=== PATIENT | female | born 1995 | race Caucasian/White ===

== ENCOUNTER 2017-08-14 03:56 | Emergency (ER) | payer OTHER ==
[~2017-08-14] VITALS: Ht 162.6 cm; Wt 70.0 kg
[2017-08-14 04:04] VITALS: BP 125/83; PULSE 92; RESP 18; TEMP 97.5; O2SAT 96
[2017-08-14] MEDS ORDERED: BIRTH (04:07)
[2017-08-14] MEDS ORDERED: LORazepam 2 MG/ML VIAL IM ONE (04:45)
[2017-08-14] MEDS ORDERED: HALOPERIDOL LACTATE 5 MG/ML AMP IM ONE (04:45)
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
== END 2017-08-14 09:35 | disposition home or self-care (01) ==
LOC: NEPD 03:56
DX: F10.129 Alcohol abuse with intoxication, unspecified (principal)
CPT/HCPCS: 96372; 99284; J1630; J2060